=== PATIENT | male | born 1980 ===

== ENCOUNTER 2018-12-13 16:23 | Emergency (ER) | payer OTHER ==
[2018-12-13 16:42] VITALS: BP 131/82; PULSE 74; RESP 18; TEMP 98.5; O2SAT 99
--- NOTE | 2018-12-13 17:06 | ED PDOC ---
HPI: Male Pain Time Seen by Provider: 12/13/18 16:39 Chief Complaint (Nursing): Male Genitourinary Chief Complaint (Provider): Male Genitourinary History Per: Patient History/Exam Limitations: no limitations Onset/Duration Of Symptoms: Days (3x days) Current Symptoms Are (Timing): Still Present Severity: Moderate Associated Symptoms: Urinary Symptoms (dysuria) Additional Complaint(s): 38 year old male with no past medical history presents to the ED for an evaluation of dysuria ongoing for 3x days. Patient denies having abdominal pain, and reports having unrelated ongoing back pain. Patient denies having new sexual partners, as he is monogamous and . Patient denies having a rash. PMD: None provided. Past Medical History Reviewed: Historical Data, Nursing Documentation, Vital Signs Vital Signs: Last Vital Signs Temp 98.5 F 12/13/18 16:39 Pulse 74 12/13/18 16:39 Resp 18 12/13/18 16:39 BP 131/82 12/13/18 16:39 Pulse Ox 99 12/13/18 16:39 GOGO Report Viewed: Yes - Medical History PMH: No Chronic Diseases - Family History Family History: States: No Known Family Hx - Social History Alcohol: None Drugs: Denies - Home Medications Home Medications: Ambulatory Orders Medication Instructions Recorded Ciprofloxacin HCl [Cipro] 500 mg PO BID #6 tablet 12/13/18 Phenazopyridine HCl [Pyridium] 100 mg PO BID PRN #6 tablet 12/13/18 - Allergies Allergies/Adverse Reactions: Allergies Allergy/AdvReac Type Severity Reaction Status Date / Time Penicillins Allergy RASH Verified 12/13/18 16:42 Review of Systems ROS Statement: Except As Marked, All Systems Reviewed And Found Negative Gastrointestinal: Negative for: Abdominal Pain Genitourinary Male: Positive for: Dysuria Musculoskeletal: Positive for: Back Pain (unrelated back pain, ongoing) Skin: Negative for: Rash Physical Exam - Reviewed Nursing Documentation Reviewed: Yes Vital Signs Reviewed: Yes - Physical Exam Appears: Positive for: Well, Non-toxic, No Acute Distress Head Exam: Positive for: ATRAUMATIC, NORMOCEPHALIC Skin: Positive for: Normal Color, Warm, Dry Cardiovascular/Chest: Positive for: Regular Rate, Rhythm Respiratory: Positive for: Normal Breath Sounds Gastrointestinal/Abdominal: Positive for: Normal Exam, Soft. Negative for: Tenderness Male Genital Exam: Positive for: normal genitalia, normal prostate, no hernia. Negative for: bleeding, epididymal tenderness, erythema, hernia mass, inguinal tenderness, lesions, scrotum tenderness (R), scrotum tenderness (L), testicular tenderness (R), testicular tenderness (L), urethral discharge Back: Positive for: Normal Inspection Neurologic/Psych: Positive for: Alert, Oriented (3x) - Laboratory Results Urine dip results: Negative for: Leukocyte Esterase, Blood, Nitrate, Ketones, Glucose, Bilirubin, Protein - ECG O2 Sat by Pulse Oximetry: 99 (RA) Pulse Ox Interpretation: Normal Medical Decision Making Medical Decision Makin:39 Initial impression: 38 year old male with dysuria. Initial plan: * udip * chlamydia/GC RNA,TMA * urine culture * urinalysis * reevaluation Scribe Attestation: Documented Debi Pearson, acting as a scribe for Marcus Berman PA-C. Provider Scribe Attestation: All medical record entries made by the Scribe were at my direction and personal ly dictated by me. I have reviewed the chart and agree that the record accurately reflects my personal performance of the history, physical exam, medical decision making, and the department course for this patient. I have also personally directed, reviewed, and agree with the discharge instructions and disposition. Disposition - Clinical Impression Clinical Impression: Dysuria - Patient ED Disposition Is Patient to be Admitted: No - Disposition Referrals: [facility] [Outside] Jose Ramon Pascal Jr., MD [Staff Provider] - Disposition: Routine/Home Disposition Time: 17:21 Condition: FAIR Prescriptions: Ciprofloxacin HCl [Cipro] 500 mg PO BID #6 tablet Phenazopyridine HCl [Pyridium] 100 mg PO BID PRN #6 tablet PRN Reason: Urinary Discomt Instructions: Dysuria, Adult (DC) Print Language: CYPRIOT
[2018-12-13 17:18] LABS: URINE BACTERIA RARE (<OCC); URINE BILIRUBIN NEGATIVE (NEGATIVE); URINE BLOOD NEGATIVE (NEGATIVE); URINE CLARITY CLEAR (Clear); URINE COLOR YELLOW (YELLOW); URINE GLUCOSE (UA) NEG (NEGATIVE); URINE LEUKOCYTE ESTERASE NEG Leu/uL (Negative); URINE PROTEIN NEGATIVE (NEGATIVE); URINE UROBILINOGEN 0.2-1.0 mg/dL (0.2-1.0)
== END 2018-12-13 17:26 | disposition home or self-care (01) ==
LOC: H.ER 16:23
DX: R30.0 Dysuria (principal); Z88.0 Allergy status to penicillin